=== PATIENT | female | born 1990 | race Caucasian/White ===

== ENCOUNTER 2016-09-19 19:02 | Emergency (ER) | payer OTHER ==
--- NOTE | 2016-09-19 19:49 | PD ---
HPI Chief Complaint possible water broke Date Seen: September 19, 2016 Time Seen: 19:40 Travel History International Travel<30 Days: No Contact w/Intl Traveler<30Days: No Known Affected Area: No History of Present Illness HPI Pt is a 26 y/o G1 with IUP at 39w4d who presents for evaluation of possible SROM. Pt states that after shower she was drying off and had trickle of fluid down legs. She then noted a little more fluid gush. Has not felt leakage since then. Pt denies ctx, vb, vag discharge. +FM Para: 0 : 1 History Past Medical History Medical History: Denies Significant Hx Past Surgical History Surgical History: No Previous Surgery Family History Family History: Negative Social History Alcohol Use: No Tobacco Use: No Substance Abuse: No Allergies-Medications (Allergen,Severity, Reaction): Coded Allergies: Sulfa (Verified Allergy, 09/19/16) Narrative Medication PNV Review of Systems General / Constitutional: No: Fever, Weight Gain, Weight Loss, Chills, Other Eyes: No: Diploplia, Blurred Vision, Visual changes, Pain, Photophobia, Other HENT: No: Headaches, Vertigo, Lightheadedness Cardiovascular: No: Irregular Rhythm, Chest Pain or Discomfort, Palpitations, Tachycardia, Syncope, Varicosities, Edema, Cyanosis, Other Respiratory: No: Cough, Short of Breath, Wheezing, Other Gastrointestinal: No: Nausea, Vomiting, Diarrhea, Abdominal Pain, Hematemesis, Hematochezia, Constipation, Changes in Bowel Habits, Indigestion, Loss of Appetite, Other Genitourinary: No: Urgency, Frequency, Dysuria, Nocturia, Hematuria, Decreased Urinary Output, Oliguria, Hesitancy, Dribbling, Incontinence, Pelvic Pain, Dyspareunia, Discharge, Menorrhagia, Vaginal Bleeding, Other Musculoskeletal: No: Limited ROM, Weakness, Cramping, Edema, Pain, Other Skin: No Rash, No Itching, No Dryness, No Lumps, No Change in Pigmentation, No Change in Nails, No Alopecia, No Lesions, No Breast Lumps, No Breast Tenderness , No Breast Swelling, No Other Neurologic: No: Weakness, Dizziness, Syncope, Focal Abnormalities, Coordination Problem, Headache, Slurred Speech, Seizures, Other Psychiatric: No: Anxiety, Depression, Suicidal Ideations, Disorder of Thought, Mood Disorder, Substance Abuse, Homicidal Ideation, Other Endocrine: No: Heat Intolerance, Cold Intolerance, Polydipsia, Polyuria, Other Hematologic/Lymphatic: No Easy Bruising, No Lymph Node Enlargement, No Other Physical Exam 131/85, 114, 16, 98.2 Narrative GENERAL: Well-nourished, well-developed patient. SKIN: Warm and dry. HEAD: Normocephalic and atraumatic. EYES: No scleral icterus. No injection or drainage. ENT: No nasal drainage noted. Mucous membranes pink. Airway patent. NECK: Supple, trachea midline. No JVD. CARDIOVASCULAR: Regular rate and rhythm without murmurs, gallops, or rubs. RESPIRATORY: Breath sounds equal bilaterally. No accessory muscle use. . ABDOMEN/GI: Abdomen soft, non-tender, bowel sounds present, no rebound, no guarding Gravid to GENITOURINARY: amnisure collected by RN--neg cervical exam by RN fingertip/posterior/high Membranes: intact, amnisure neg Uterine Contractions: irregular FHT's: Category: [1] Baseline: 130s Reactive: yes Variability: mod Decels: no EXTREMITIES: No cyanosis or edema. BACK: Nontender without obvious deformity. No CVA tenderness. NEUROLOGICAL: Awake and alert. Motor and sensory grossly within normal limits. Five out of 5 muscle strength in all muscle groups. Normal speech. Data Data Vital Signs Reviewed: Yes MDM Medical Record Reviewed: Yes Narrative Course / MDM 26 y/o G1 with c/o leaking fluid no evidence of srom on exam, amnisure neg d/c home with labor precautions/fkc keep OB appt on as scheduled Diagnosis Diagnosis: Primary Impression: No leakage of amniotic fluid into vagina Additional Impression: 39 weeks gestation of Disposition: DISCHARGE HOME Condition: Stable Filipe Bower MD September 19, 2016 19:49
== END 2016-09-19 20:00 | disposition home or self-care (01) ==
LOC: HOBED 19:02
DX: O26.93 Pregnancy related conditions, unspecified, third trimester (principal); Z3A.39 39 weeks gestation of pregnancy
CPT/HCPCS: 84112; 99284

== ENCOUNTER 2016-09-23 04:13 | Emergency (ER) | payer OTHER ==
--- NOTE | 2016-09-23 06:14 | PD ---
HPI Travel History International Travel<30 Days: No Contact w/Intl Traveler<30Days: No Known Affected Area: No History of Present Illness HPI 26-year-old 1 para 0 EDC is September 22, 2016 presently at 40 weeks and 1 day she presents with chief complaint of regular contractions every 5-6 minutes that started earlier this morning Positive bloody show no rupture of membranes baby is active care with course is significant for positive group B strep treated for UTI one-hour Glucola was normal History Past Medical History Narrative Medical Allergy to sulfa and sulfa drugs questionable penicillin allergy however patient has taken amoxicillin without any problems denies any medical problems Obstetric History Obstetric History First Past Surgical History Surgical History: No Previous Surgery Family History Family History: Negative Social History Alcohol Use: No Tobacco Use: No Substance Abuse: No Allergies-Medications (Allergen,Severity, Reaction): Coded Allergies: Sulfa (Verified Allergy, Unknown, 09/19/16) Review of Systems Gastrointestinal: Abdominal Pain (contractions) Physical Exam Narrative GENERAL: Well-nourished, well-developed patient. Alert oriented 3 and cooperative in no acute distress CARDIOVASCULAR: Regular rate and rhythm without murmurs, gallops, or rubs. RESPIRATORY: Breath sounds equal bilaterally. No accessory muscle use. ABDOMEN/GI: Gravid consistent with a term gestation estimated weight 7-1/2 -8 pounds palpable contractions every 5 minutes Gravid to [-] weeks size term Fundal Height: [-] GENITOURINARY: External Genitalia: intact and normal in appearance BUS glands: [-] Cervix: [-] Midline slightly posterior Dilatation: [-] 1-2 cm Effacement: [-] 90% Station: [-] -2 station Presentation: [-] Vertex Membranes: [intact Uterine Contractions: [-] Contractions about every 5 minutes FHT's: Category: [-] 1 Baseline: [-] 130 Reactive: [-] + Variability: [-] Moderate [id number] variability Decels: [-] 0 EXTREMITIES: No cyanosis or edema. 2+ reflexes NEUROLOGICAL: Awake and alert. Motor and sensory grossly within normal limits. Five out of 5 muscle strength in all muscle groups. Normal speech. Data Data Vital Signs Reviewed: Yes (initial blood pressures 131/80 7 repeat 122/84 pulse 102 temperature is 98.2) Labs Bedside ultrasound is done Vertex presentation Amniotic fluid index is 12.58 Positive flexion positive tone Posterior grade 3 placenta Did not wait for breathing MDM Medical Record Reviewed: No (no records available at this time) Interpretation(s) 26-year-old G one P0 at 40 weeks and 1 day Early latent phase GBS positive Narrative Course / MDM Patient has been allowed to walk has been monitored over the past 1-1/2-2 hours 100% effaced 1 almost 2 cm vertex at a -2 station membranes are intact spoke with Dr. Collins States to send the patient home May give Vistaril 50 mg by mouth kick counts Category 1 tracing Amniotic fluid index of 12 Plan Will allow patient to walk She has been observed over the past hour and her cervix has thinned out from 50 % effaced to 90% effaced Physician Communication Dr. Collins covering he states to discharge the patient home with instructions on when to return, give Vistaril 50 mg by mouth kick counts As the patient is group B strep positive strict instructions on when to return if there is suspicion of leaking of fluid or rupture of membranes Regularity and the contraction pattern Increase in intensity Patient states that she lives less than 15 minutes from hospital Diagnosis Diagnosis: Primary Impression: Postmaturity , 40-42 weeks gestation Additional Impressions: Mother positive for group B Streptococcus colonization Irregular contractions of the heart Disposition: 01 DISCHARGE HOME Condition: Stable Venessa Gómez MD September 23, 2016 06:14
[2016-09-24] MEDS ORDERED: PREN29TA PO (09:11)
== END 2016-09-23 08:01 | disposition home or self-care (01) ==
LOC: HOBED 04:13
DX: O99.820 Streptococcus B carrier state complicating pregnancy (principal); R10.9 Unspecified abdominal pain; Z3A.40 40 weeks gestation of pregnancy
CPT/HCPCS: 99284

== ENCOUNTER 2016-09-24 05:17 | Inpatient (IN) | payer OTHER ==
[2016-09-24] VITALS (141 sets, daily range): BP systolic 75–136; BP diastolic 26–107; PULSE 70–136; RESP 17–19; TEMP 97.5–98.8
[~2016-09-24] VITALS: Ht 170.2 cm; Wt 74.8 kg
--- NOTE | 2016-09-24 06:08 | PD ---
HPI Chief Complaint Contractions. Date Seen: September 24, 2016 Travel History International Travel<30 Days: No Contact w/Intl Traveler<30Days: No Known Affected Area: No History of Present Illness HPI This is a 26y/o at 40w2d who presents with c/o contractions q 5 minutes apart for the last few hours with associated bloody discharge. Pt was seen on at 0600 with ve of 1-2/100/posterior, with no cervical change after ambulating for 2 hours. She denies soledad vaginal bleeding or leakage of fluid with reports of active movements. care with Dr. Bustamante, care complicated by: 1. GBS + Para: 0 : 1 History Past Medical History Medical History: Denies Significant Hx Obstetric History Obstetric History Primip Past Surgical History Narrative Surgical H/o wisdom teeth extraction under general anesthesia a few years ago Family History Family History: Negative Social History Alcohol Use: No Tobacco Use: No Substance Abuse: No Allergies-Medications (Allergen,Severity, Reaction): Coded Allergies: Sulfa (Verified Allergy, Unknown, 09/19/16) Review of Systems Except as stated in HPI: all other systems reviewed are Neg Physical Exam Narrative GENERAL: Well-nourished, well-developed patient, breathing through contractions SKIN: Warm and dry. HEAD: Normocephalic and atraumatic. EYES: No scleral icterus. No injection or drainage. ENT: No nasal drainage noted. Mucous membranes pink. Airway patent. NECK: Supple, trachea midline. No JVD. CARDIOVASCULAR: Regular rate and rhythm without murmurs, gallops, or rubs. RESPIRATORY: Breath sounds equal bilaterally. No accessory muscle use. BREASTS: Bilateral exam showed no masses , no retractions, no nipple discharge. ABDOMEN/GI: Abdomen soft, non-tender, bowel sounds present, no rebound, no guarding Gravid to 39w GENITOURINARY: External Genitalia: intact and normal in appearance VE: 2-3/100/-2, per RN, no bloody show noted Uterine Contractions: q 2-3 minutes apart FHT's: Category: Cat 1 tracing EXTREMITIES: No cyanosis or edema. BACK: Nontender without obvious deformity. No CVA tenderness. NEUROLOGICAL: Awake and alert. Motor and sensory grossly within normal limits. Five out of 5 muscle strength in all muscle groups. Normal speech. Data Data Vital Signs Reviewed: Yes [facility] Medical Record Reviewed: No Interpretation(s) 26y/o at 40w2d in early labor. -GBS+ Plan -Ambulate for 2 hours -recheck cervix -GBS + ADDENDUM: -pt still breathing through contractions -VE per RN: 3/-1 -Admit for delivery -d/w Dr. Collins, for PCN. Diagnosis Diagnosis: Primary Impression: Postmaturity , 40-42 weeks gestation Additional Impression: Mother positive for group B Streptococcus colonization Yuli Lott MD September 24, 2016 06:07
[2016-09-24] MEDS ORDERED: LACTATED RINGER'S 1000 ML INJ 1,000 ML IV PRN (07:40)
[2016-09-24] MEDS ORDERED: SODIUM CHLORID 0.9% 500 ML INJ 500 ML IV PRN (07:45)
[2016-09-24] MEDS ORDERED: CITRIC ACID-SODIUM CITRATE LIQ 30 ML UDC PO SCH (07:45)
[2016-09-24] MEDS ORDERED: LIDOCAINE HCL 1% 50 ML VIAL INFIL PRN (07:45)
[2016-09-24] MEDS ORDERED: MINERAL OIL 10 ML VIAL TOPICAL PRN (07:45)
[2016-09-24] MEDS ORDERED: LIDOCAINE HCL 1% 50 ML VIAL I-DERMAL PRN (07:45)
[2016-09-24] MEDS ORDERED: ONDANSETRON HCL 4 MG/2 ML VIAL IV PRN (07:45)
[2016-09-24] MEDS ORDERED: PENICILLIN G POTASSIUM INJ 5,000,000 UNITS in SODIUM CHLORIDE 0.9% INJ 100 ML IV ONE (07:45)
[2016-09-24] MEDS ORDERED: OXYTOCIN 30 UNITS-500ML PREMIX 500 ML IV ONE ×2 (07:45→20:30)
[2016-09-24] MEDS ORDERED: SODIUM CHLOR 0.9% 1000 ML INJ 1,000 ML IV PRN (08:00)
[2016-09-24 08:09] LABS: BASOPHIL # 0.1 TH/MM3 (0-0.2); BASOPHIL % 0.6 % (0.0-2.0); EOSINOPHIL % 0.4 % (0.0-4.0); HEMATOCRIT 37.3 % (35.0-46.0); HEMO FLAGS DIFF FINAL; LYMPH % 14.9 % (9.0-44.0); LYMPHOCYTE # 1.7 TH/MM3 (1.0-4.8); MEAN CELL VOLUME 94.2 FL (80.0-100.0); MEAN CORPUSCULAR HEMOGLOBIN 30.2 PG (27.0-34.0); MEAN CORPUSCULAR HGB CONC 32.1 % (32.0-36.0); NEUT % 78.1 % (16.0-70.0); PLATELET COUNT 113 TH/MM3 (150-450); RED BLOOD COUNT 3.95 MIL/MM3 (4.00-5.30); RED CELL DISTRIBUTION WIDTH 14.7 % (11.6-17.2); WHITE BLOOD COUNT 11.5 TH/MM3 (4.0-11.0)
[2016-09-24] MEDS: LACTATED RINGER'S 1000 ML INJ 1,000 ML IV SCH ×2 (09:09→09:10)
[2016-09-24] MEDS ORDERED: PREN29TA PO (09:11)
[2016-09-24] MEDS ORDERED: fentaNYL 2MCG-BUPIV 0.125% INJ 100 ML ONE (10:02)
[2016-09-24] MEDS ORDERED: DO NOT ADMINISTER ANTICOAGULANTS PRN (11:15)
[2016-09-24] MEDS ORDERED: ePHEDrine/NS 25 MG/5 ML SYR IV PRN (11:15)
[2016-09-24] MEDS ORDERED: NO SYSTEM NARCOTICS PRN (11:15)
[2016-09-24] MEDS ORDERED: fentaNYL 2MCG-BUPIV 0.125% 100 ML EPIDURAL SCH (11:15)
[2016-09-24 11:37] LABS: BACTERIA, URINE RARE /hpf; BLOOD, URINE SMALL (NEG); COMMENT (UR) CULT NOT INDICATED; CULTURE IF INDICATED CULT NOT INDICATED; GLUCOSE,URINE NEG (NEG); KETONE, URINE NEG (NEG); NITRITE,URINE NEG (NEG); PH, URINE 7.5 (5.0-8.5); SQUAMOUS EPITHELIAL CELL URINE 4 /hpf (0-5); URINE COLOR LIGHT-YELLOW (YELLW/STRAW)
[2016-09-24] MEDS: PENICILLIN G POTASSIUM INJ 2,500,000 UNITS in SODIUM CHLORIDE 0.9% INJ 100 ML IV SCH ×2 (13:14→15:45)
[2016-09-24] MEDS ORDERED: OXYTOCIN 30 UNITS-500ML PREMIX 500 ML IV SCH (15:30)
[2016-09-24] MEDS ORDERED: DIPHTH/TETANUS/ACEL PERTUSSIS (BOOSTER) 0.5 ML VIAL/PFS IM ONE (16:00)
[2016-09-24] MEDS ORDERED: MEASLES, MUMPS, RUBELLA VACCINE 0.5 ML VIAL SQ ONE (16:00)
--- NOTE | 2016-09-24 20:24 | PD.OB.DELI ---
Delivery Date: September 24, 2016 Anesthesia: Epidural Episiotomy: Midline Vaginal Delivery: Normal Presentation: Occiput anterior Nuchal Cord: x2 Delayed cord clamping (45 sec): Yes : Male One Minute : 9 Five Minute : 9 Weight: 7/11 Placenta: Spontaneous delivery, Intact, 3 vessel cord Laceration: Episiotomy, Vaginal laceration, 2 deg Repair: Vicryl running Additional Information Beautiful delivery of Arnulfo Right lateral vaginal tear repaired with 3-0 vicryl. I delivered this patient..(the mom) Saulo Collins MD September 24, 2016 20:24
[2016-09-24] MEDS ORDERED: ZOLPIDEM TARTRATE 5 MG TAB PO PRN (20:30)
[2016-09-24] MEDS ORDERED: BENZOCAINE 20% TOPICAL SPRAY 60 ML CAN TOPICAL PRN (20:30)
[2016-09-24] MEDS ORDERED: DOCUSATE SODIUM 50 MG/SENNA 8.6 MG TAB PO PRN (20:30)
[2016-09-24] MEDS ORDERED: SODIUM CHLORIDE 0.9% FLUSH 10 ML FLUSH IV FLUSH PRN (20:30)
[2016-09-24] MEDS ORDERED: ALUMINUM/MAGNESIUM/SIMETH 30 ML CUP PO PRN (20:30)
[2016-09-24] MEDS ORDERED: oxyCODONE/ACETAMINOPHEN 5 MG/325 MG TAB PO PRN (20:30)
[2016-09-24] MEDS ORDERED: ONDANSETRON ODT 4 MG TAB PO PRN (20:30)
[2016-09-24] MEDS: SODIUM CHLORIDE 0.9% FLUSH 10 ML FLUSH IV FLUSH SCH (21:00)
[2016-09-24] MEDS: IBUPROFEN 600 MG TAB PO PRN (22:04)
[2016-09-24] MEDS: oxyCODONE/ACETAMINOPHEN 5 MG/325 MG TAB PO PRN (22:05)
[2016-09-24] MEDS: ACETAMINOPHEN 325 MG TAB PO PRN (22:05)
[2016-09-24] MEDS: WITCH HAZEL 50%/GLYCERIN 12.5% 40 PAD JAR TOPICAL PRN (23:27)
[2016-09-25] MEDS: IBUPROFEN 600 MG TAB PO PRN ×3 (05:20→18:05)
[2016-09-25 09:00] VITALS: BP 115/75; PULSE 91; RESP 18; TEMP 97.9
[2016-09-25] MEDS: SODIUM CHLORIDE 0.9% FLUSH 10 ML FLUSH IV FLUSH SCH (09:00)
[2016-09-25] MEDS ORDERED: MULTIVIT/MIN/PREN/FOL AC/IRON PRENATAL TAB PO SCH (09:00)
[2016-09-25] MEDS: ACETAMINOPHEN 325 MG TAB PO PRN ×4 (09:21→23:14)
--- NOTE | 2016-09-25 12:11 | HHI.OB ---
Subjective Post Day: 1 Objective Vitals/I&O Vital Signs Date Time Temp Pulse Resp B/P Pulse Ox O2 Delivery O2 Flow Rate FiO2 09/25/16 09:00 97.9 91 18 115/75 09/24/16 23:25 94 106/65 09/24/16 23:25 98.1 18 09/24/16 21:30 18 09/24/16 21:30 111 109/77 09/24/16 21:15 18 09/24/16 21:15 102 110/60 09/24/16 21:15 98.6 09/24/16 21:00 18 09/24/16 21:00 114 116/58 09/24/16 20:47 118 103/67 09/24/16 20:38 18 09/24/16 20:30 119 112/61 09/24/16 20:21 18 09/24/16 20:00 136 133/62 09/24/16 19:58 127 121/55 09/24/16 18:40 99 09/24/16 18:35 99 09/24/16 18:30 94 09/24/16 18:30 93 102/67 09/24/16 18:25 111 09/24/16 18:20 117 09/24/16 18:15 120 09/24/16 18:10 114 09/24/16 18:05 97 09/24/16 18:00 108 116/63 09/24/16 18:00 135 09/24/16 17:55 110 09/24/16 17:50 95 09/24/16 17:45 18 09/24/16 17:45 92 09/24/16 17:45 98.3 09/24/16 17:40 81 09/24/16 17:35 75 09/24/16 17:30 75 94/53 09/24/16 17:30 83 09/24/16 17:25 87 09/24/16 17:20 74 09/24/16 17:15 76 09/24/16 17:10 78 09/24/16 17:05 79 09/24/16 17:00 86 09/24/16 17:00 78 105/67 09/24/16 16:55 74 09/24/16 16:50 84 09/24/16 16:45 17 09/24/16 16:45 86 17 16:40 80 1417 16:35 90 17 16:30 82 103/59 1417 16:30 90 17 16:25 79 17 16:20 77 17 16:15 77 09/24/16 16:10 77 09/24/16 16:05 86 09/24/16 16:02 85 93/65 17 16:01 115 75/26 17 16:00 85 1417 15:55 82 1417 15:50 78 1417 15:45 85 17 15:45 97.9 18 1417 15:40 92 17 15:35 106 17 15:31 93 107/66 1417 15:30 91 09/24/16 15:25 95 17 15:20 94 09/24/16 15:15 89 09/24/16 15:10 99 09/24/16 15:05 101 09/24/16 15:00 94 121/69 09/24/16 15:00 86 09/24/16 14:55 86 09/24/16 14:50 90 09/24/16 14:45 92 09/24/16 14:45 18 09/24/16 14:40 101 09/24/16 14:35 98 09/24/16 14:30 92 111/67 17 14:30 98 09/24/16 14:25 85 09/24/16 14:20 93 09/24/16 14:15 92 17 14:10 100 09/24/16 14:05 89 14 14:00 90 111/68 1417 14:00 90 1417 13:55 90 1417 13:50 101 1417 13:45 95 14/17 13:45 98.8 18 14/17 13:40 78 14/17 13:35 83 14/17 13:31 82 107/64 14/17 13:30 81 14/17 13:25 89 1417 13:20 88 5/14/17 13:15 76 09/24/16 13:15 82 17 104/60 09/24/16 13:10 108 09/24/16 13:05 102 09/24/16 13:00 82 09/24/16 13:00 84 86/52 09/24/16 12:55 75 09/24/16 12:50 73 09/24/16 12:45 80 93/55 09/24/16 12:45 71 09/24/16 12:40 79 09/24/16 12:35 77 09/24/16 12:30 75 88/50 09/24/16 12:30 74 09/24/16 12:25 73 09/24/16 12:20 70 09/24/16 12:16 79 109/50 09/24/16 12:15 17 09/24/16 12:15 98 09/24/16 12:10 90 Objective Remarks GENERAL: Well-nourished, well-developed patient. CARDIOVASCULAR: Regular rate and rhythm without murmurs, gallops, or rubs. RESPIRATORY: Breath sounds equal bilaterally. No accessory muscle use. ABDOMEN/GI: Abdomen soft, non-tender. Fundus: Firm, non-tender at umbilicus. GENITOURINARY: Light to moderate bleeding. EXTREMITIES: No cyanosis or edema, non-tender, without signs of DVT. Medications and IVs Current Medications Medications (Trade) Dose Ordered Sig/Javier Route Start Time Stop Time Status Last Admin (NS Flush) 2 ml BID IV FLUSH 09/24/16 21:00 09/24/16 21:00 (NS Flush) 2 ml UNSCH PRN IV FLUSH 09/24/16 20:30 (Tylenol) 650 mg Q4H PRN PO 09/24/16 20:30 09/25/16 09:21 (Motrin) 600 mg Q6H PRN PO 09/24/16 20:30 09/25/16 05:20 (Percocet 5-325 Mg) 1 tab Q4H PRN PO 09/24/16 20:30 09/24/16 22:05 (Percocet 5-325 Mg) 2 tab Q4H PRN PO 09/24/16 20:30 (Americaine 20% Top Spr) 1 spray Q4H PRN TOPICAL 09/24/16 20:30 09/24/16 23:27 (Tucks Pads) 1 applic QID PRN TOPICAL 09/24/16 20:30 09/24/16 23:27 (Danita-Colace) 2 tab Q12H PRN PO 09/24/16 20:30 09/24/16 22:06 (Ambien) 5 mg HS PRN PO 09/24/16 20:30 (Mag-Al Plus Susp Liq) 15 ml Q8H PRN PO 09/24/16 20:30 (Zofran Odt) 4 mg Q6H PRN PO 09/24/16 20:30 (Stuartnatal Plus 3 ) 1 tab DAILY PO 09/25/16 09:00 09/25/16 08:39 Assessment/Plan Problem List: (1) Mother positive for group B Streptococcus colonization (2) Normal vaginal delivery Plan: routine Assessment and Plan PPD #1 PT DOING WELL BONDING WITH PAIN WELL MANAGED WITH ORAL MOTIN AND TYLENOL ROUTINE Discharge Planning CONSIDER DC HOME TOMORROW Viv Aragon September 25, 2016 12:11 Viv Aragon September 25, 2016 12:11
--- NOTE | 2016-09-25 12:22 | HHI.OB ---
Subjective Post Day: 1 Remarks pt of mine delivered over wknd by Dr. Collins doing well, pain at episiotomy controlled with po meds voiding, ambulating, infant bottle feeding Objective Vitals/I&O Vital Signs Date Time Temp Pulse Resp B/P Pulse Ox O2 Delivery O2 Flow Rate FiO2 09/25/16 09:00 97.9 91 18 115/75 09/24/16 23:25 94 106/65 09/24/16 23:25 98.1 18 09/24/16 21:30 18 09/24/16 21:30 111 109/77 09/24/16 21:15 18 09/24/16 21:15 102 110/60 09/24/16 21:15 98.6 09/24/16 21:00 18 09/24/16 21:00 114 116/58 09/24/16 20:47 118 103/67 09/24/16 20:38 18 09/24/16 20:30 119 112/61 09/24/16 20:21 18 09/24/16 20:00 136 133/62 09/24/16 19:58 127 121/55 09/24/16 18:40 99 09/24/16 18:35 99 09/24/16 18:30 94 09/24/16 18:30 93 102/67 09/24/16 18:25 111 09/24/16 18:20 117 09/24/16 18:15 120 09/24/16 18:10 114 09/24/16 18:05 97 09/24/16 18:00 108 116/63 09/24/16 18:00 135 09/24/16 17:55 110 09/24/16 17:50 95 09/24/16 17:45 18 09/24/16 17:45 92 09/24/16 17:45 98.3 09/24/16 17:40 81 09/24/16 17:35 75 09/24/16 17:30 75 94/53 09/24/16 17:30 83 09/24/16 17:25 87 09/24/16 17:20 74 09/24/16 17:15 76 09/24/16 17:10 78 09/24/16 17:05 79 09/24/16 17:00 86 09/24/16 17:00 78 105/67 17 16:55 74 17 16:50 84 17 16:45 17 09/24/16 16:45 86 17 16:40 80 17 16:35 90 17 16:30 82 103/59 17 16:30 90 09/24/16 16:25 79 09/24/16 16:20 77 09/24/16 16:15 77 09/24/16 16:10 77 09/24/16 16:05 86 17 16:02 85 93/65 09/24/16 16:01 115 75/26 09/24/16 16:00 85 09/24/16 15:55 82 09/24/16 15:50 78 09/24/16 15:45 85 09/24/16 15:45 97.9 18 09/24/16 15:40 92 09/24/16 15:35 106 09/24/16 15:31 93 107/66 09/24/16 15:30 91 09/24/16 15:25 95 17 15:20 94 09/24/16 15:15 89 09/24/16 15:10 99 09/24/16 15:05 101 09/24/16 15:00 94 121/69 09/24/16 15:00 86 09/24/16 14:55 86 09/24/16 14:50 90 09/24/16 14:45 92 09/24/16 14:45 18 09/24/16 14:40 101 09/24/16 14:35 98 09/24/16 14:30 92 111/67 17 14:30 98 09/24/16 14:25 85 09/24/16 14:20 93 09/24/16 14:15 92 09/24/16 14:10 100 09/24/16 14:05 89 09/24/16 14:00 90 111/68 09/24/16 14:00 90 17 13:55 90 09/24/16 13:50 101 1417 13:45 95 1417 13:45 98.8 18 1417 13:40 78 17 13:35 83 5/14/17 13:31 82 107/64 09/24/16 13:30 81 09/24/16 13:25 89 09/24/16 13:20 88 09/24/16 13:15 76 09/24/16 13:15 82 17 104/60 09/24/16 13:10 108 09/24/16 13:05 102 09/24/16 13:00 82 09/24/16 13:00 84 86/52 09/24/16 12:55 75 09/24/16 12:50 73 09/24/16 12:45 80 93/55 09/24/16 12:45 71 09/24/16 12:40 79 09/24/16 12:35 77 09/24/16 12:30 75 88/50 09/24/16 12:30 74 09/24/16 12:25 73 Objective Remarks GENERAL: Well-nourished, well-developed patient. CARDIOVASCULAR: Regular rate and rhythm without murmurs, gallops, or rubs. RESPIRATORY: Breath sounds equal bilaterally. No accessory muscle use. ABDOMEN/GI: Abdomen soft, non-tender. Fundus: Firm, non-tender at umbilicus. GENITOURINARY: Light bleeding. EXTREMITIES: No cyanosis or edema, non-tender, without signs of DVT. Medications and IVs Current Medications Medications (Trade) Dose Ordered Sig/Javier Route Start Time Stop Time Status Last Admin (NS Flush) 2 ml BID IV FLUSH 09/24/16 21:00 09/24/16 21:00 (NS Flush) 2 ml UNSCH PRN IV FLUSH 09/24/16 20:30 (Tylenol) 650 mg Q4H PRN PO 09/24/16 20:30 09/25/16 09:21 (Motrin) 600 mg Q6H PRN PO 09/24/16 20:30 09/25/16 11:59 (Percocet 5-325 Mg) 1 tab Q4H PRN PO 09/24/16 20:30 09/24/16 22:05 (Percocet 5-325 Mg) 2 tab Q4H PRN PO 09/24/16 20:30 (Americaine 20% Top Spr) 1 spray Q4H PRN TOPICAL 09/24/16 20:30 09/24/16 23:27 (Tucks Pads) 1 applic QID PRN TOPICAL 09/24/16 20:30 09/24/16 23:27 (Danita-Colace) 2 tab Q12H PRN PO 09/24/16 20:30 09/24/16 22:06 (Ambien) 5 mg HS PRN PO 09/24/16 20:30 (Mag-Al Plus Susp Liq) 15 ml Q8H PRN PO 09/24/16 20:30 (Zofran Odt) 4 mg Q6H PRN PO 09/24/16 20:30 (Stuartnatal Plus 3 ) 1 tab DAILY PO 09/25/16 09:00 09/25/16 08:39 Assessment/Plan Problem List: (1) Normal vaginal delivery Plan: routine (2) Mother positive for group B Streptococcus colonization Assessment and Plan PPD #1 routine supportive care reviewed episiotomy care d/c to home tmrw office f/u 6 wks not for circ Discharge Planning routine Kylie Bustamante MD September 25, 2016 12:22
[2016-09-25] MEDS ORDERED: SENN1TAB PO (12:24)
[2016-09-25] MEDS ORDERED: IBUP-232 PO (12:24)
--- NOTE | 2016-09-25 12:24 | HHI.DCPOC ---
Discharge Care Plan Diagnosis: (1) Normal vaginal delivery Your Health Problems Are: Vaginal delivery Report Symptoms to Your Doctor -Temperate above 100.5 degrees -Redness, of incision or excessive or foul smelling drainage -Unusual pain or calf pain -Increased vaginal bleeding -Painful or difficulty urinating -Feelings of extreme sadness or anxiety after 2 weeks Goals to Promote Your Health * To prevent worsening of your condition and complications * To maintain your health at the optimal level Directions to Meet Your Goals Take your medications as prescribed Follow your dietary instruction Follow activity as directed Ensure plenty of rest for recovery Drink fluids for hydration Keep your appointments as scheduled Take your immunizations and boosters as scheduled If your symptoms worsen call your PCP, if no PCP go to Urgent Care Center or Emergency Room Smoking is Dangerous to Your Health. Avoid second hand smoke Call the 24-hour crisis hotline for domestic abuse at Kylie Bustamante MD September 25, 2016 12:24
[2016-09-25] MEDS: WITCH HAZEL 50%/GLYCERIN 12.5% 40 PAD JAR TOPICAL PRN (18:06)
[2016-09-25] MEDS: oxyCODONE/ACETAMINOPHEN 5 MG/325 MG TAB PO PRN (23:14)
[2016-09-26] MEDS: IBUPROFEN 600 MG TAB PO PRN ×4 (00:07→17:41)
[2016-09-26] MEDS: ACETAMINOPHEN 325 MG TAB PO PRN ×2 (03:16→07:05)
[2016-09-26 08:00] VITALS: BP 117/82; PULSE 91; RESP 16; TEMP 98.1
== END 2016-09-26 18:07 | disposition home or self-care (01) | DRG 775 ==
LOC: HOBED 05:17 → H2EB 08:06 → H1EA 22:59
PROVIDERS: ADMIT Obstetrics & Gynecology; ATTEND Obstetrics & Gynecology
PROC: 10E0XZZ Delivery of Products of Conception, External Approach (ICD-10-PCS; principal; 2016-09-24)
PROC: 0KQM0ZZ Repair Perineum Muscle, Open Approach (ICD-10-PCS; 2016-09-24)
PROC: 0W8NXZZ Division of Female Perineum, External Approach (ICD-10-PCS; 2016-09-24)
PROC: 00HU33Z Insertion of Infusion Device into Spinal Canal, Percutaneous Approach (ICD-10-PCS; 2016-09-24)
PROC: 3E0R3CZ (ICD-10-PCS; 2016-09-24)
DX: O99.824 Streptococcus B carrier state complicating childbirth (principal); O69.81X0 Labor and delivery complicated by cord around neck, without compression, not applicable or unspecified; Z3A.40 40 weeks gestation of pregnancy; O70.1 Second degree perineal laceration during delivery; Z37.0 Single live birth; Z88.2 Allergy status to sulfonamides
CPT/HCPCS: 59025; 81001; 85025; 86900; 86901; 99285; J2540; J2590; J7120